=== PATIENT | female | born 1975 | race Caucasian/White ===

== ENCOUNTER 2018-12-16 23:54 | Inpatient (IN) ==
[2018-12-17] MEDS ORDERED: NARCAN IV ONE (00:53)
[2018-12-17 01:12] LABS: BASO# 0.01 X1000 (0.0-0.2); BASO% 0.1 % (0.0-0.8); EOS# 0.05 X1000 (0.0-0.7); EOS% 0.5 % (0.0-10.0); HEMATOCRIT 43.3 % (37.0-47.0); HEMOGLOBIN 14.9 g/dL (12.0-16.0); IMM GRAN# 0.02 X1000 (0.0-0.04); IMM GRAN% 0.2 % (0.0-0.5); LYMPH# 2.08 X1000 (1.2-3.4); LYMPH% 21.2 % (20.5-51.1); MCHC 34.4 g/dL (33-37); MONO# 0.42 X1000 (0.11-0.59); MONO% 4.3 % (1.7-9.3); MPV 10.1 FL (7.4-10.4); NEUT# 7.22 X1000 (1.4-6.5); NEUT% 73.7 % (42.2-75.2); PLT 282 X1000 (130-400); RBC 4.51 XMIL (4.2-5.4); RDW 13.3 % (11.5-14.5)
[2018-12-17 01:40] LABS: ACETAMINOPHEN < 1.2 ug/mL (10-30); AGAP 14; ALB/GLOB RATIO 1.5; ALBUMIN 4.3 g/dL (3.5-5.0); ALKALINE PHOSPHATASE 135 U/L (32-104); BUN 9 mg/dL (8-22); CALCIUM 9.5 mg/dL (8.8-10.2); CHLORIDE 108 mmol/L (98-107); CK TOTAL 58 U/L (24-173); COSMO 291; CREATININE 0.8 mg/dL (0.5-0.9); ESTIMATED GFR > 60; GLUCOSE 92 mg/dL (70-104); GOT 10 U/L (10-30); GPT 7 U/L (10-36); POTASSIUM 2.9 mmol/L (3.5-5.1); SALICYLATES 15.56 mg/dL (3-10); SODIUM 147 mmol/L (136-145); TCO2 25 mmol/L (25-35); TOTAL BILIRUBIN 0.22 mg/dL (0.20-1.00); TOTAL PROTEIN 7.2 g/dL (6.3-8.3)
--- NOTE | 2018-12-17 01:44 | PROVIDER DOCUMENTATION ---
[id number] Abuse/Overdose - General Chief Complaint: Overdose Stated Complaint: OVERDOSE Time Seen by Provider: 12/17/18 00:05 Source: family, EMS Unable to obtain history due to:: altered Allergies/Adverse Reactions: Allergies Allergy/AdvReac Type Severity Reaction Status Date / Time Sulfa (Sulfonamide Allergy SWELLING Verified 10/24/17 02:46 Antibiotics) Home Medications: Home Medication List Medication Instructions Recorded Confirmed Last Taken Type Clonazepam 1 mg PO BID PRN 11/20/17 06/09/18 11/07/17 History Olanzapine 10 mg PO QHS 11/20/17 06/09/18 11/07/17 History - History of Present Illness-Drug/Alcohol Nature of Presenting Problem: Presents to the EC via EMS after being found down in her house. Daughter is at bedside who states that she came home and tried to get into the house but she couldnt get in. She called her brother who came in and was able to push the door open and they found her down unconscious under the table. They were not able to awake her up and they called EMS. She has a history of drug overdoses before but wanting to harm hersef. She also has a history of heroin abuse per EMR. Review of Systems - Adult - REVIEW OF SYSTEMS - ADULT ROS:: unobtainable per condition Constitutional: reports: see HPI Past History - Adult - PAST MEDICAL HISTORY-ADULT Review of Records: reports: Old Records Reviewed, Nursing Assessment Review Major Childhood Illnesses: reports: denies history Cardiovascular: reports: HTN, other ( ) Respiratory: reports: denies history Gastrointestinal: reports: Crohn's, other (diverticulitis) Obstetrical/Gynecological: reports: other (hysterectomy) Genitourinary: reports: kidney disease Musculoskeletal: reports: denies history Neurological: reports: Seizures/Epilepsy Psychiatric: reports: psychiatric problems, other (bipolar) Endocrine/Immune: reports: denies history, other Other Conditions: reports: MRSA - PRIOR SURGERIES/PROCEDURES Surgical/Procedure History: reports: hysterectomy, other (asd repair) - PRIOR HOSPITALIZATIONS Prior Hospitalizations: reports: none - IMMUNIZATION STATUS Childhood Immunizations: See Nurse Assessment Flu Vaccine: See Nurse Assessment - FAMILY HISTORY Family History: reviewed, not pertinent Physical Exam-General - PHYSICAL EXAM-ADULT Initial Vital Signs Reviewed: Yes - CONSTITUTIONAL General Appearance: no apparent distress, other (respond sonly to verbal stimuli) - EYES Eyes: PERRL/EOMI (constricted bu equal and reactive) - HEAD, EARS, NOSE, MOUTH & THROAT HENMT: normocephalic/atraumatic - NECK Neck: normal inspection - RESPIRATORY Respiratory: chest non-tender, normal breath sounds - CARDIOVASCULAR Cardiovascular: normal peripheral pulses, regular rate, rhythm, no murmur - GASTROINTESTINAL (ABDOMEN) Abdominal Exam: normal bowel sounds, soft - MUSCULOSKELETAL Back Exam: normal inspection, no CVA tenderness Extremity: normal inspection, no pedal edema - SKIN Integumentary: normal color, warm/dry - NEUROLOGIC Neurologic: other (limited neuro eval due to patient mental status) - PSYCHIATRIC Psych/Mental Status: disoriented x 3 Progress - PLAN OF CARE/RESULTS Progress/Plan/Lab Results: Vital Signs - 8 hr 12/17/18 00:01 12/17/18 00:05 12/17/18 00:07 Temperature 97.5 F L Pulse Rate 79 92 H Respiratory Rate 14 20 Blood Pressure 139/107 140/101 140/101 O2 Sat by Pulse Oximetry 98 100 97 12/17/18 00:18 12/17/18 00:32 12/17/18 00:47 Temperature Pulse Rate 81 79 86 Respiratory Rate 18 18 17 Blood Pressure 129/88 131/92 116/91 O2 Sat by Pulse Oximetry 98 95 96 12/17/18 01:47 12/17/18 02:02 12/17/18 02:30 Temperature Pulse Rate 80 87 78 Respiratory Rate 18 18 17 Blood Pressure 148/101 117/83 O2 Sat by Pulse Oximetry 97 93 L 99 12/17/18 02:32 12/17/18 02:40 12/17/18 02:50 Temperature Pulse Rate 82 87 93 H Respiratory Rate 22 22 19 Blood Pressure 156/116 O2 Sat by Pulse Oximetry 98 97 12/17/18 03:00 12/17/18 03:04 12/17/18 03:10 Temperature Pulse Rate 89 90 79 Respiratory Rate 19 15 16 Blood Pressure O2 Sat by Pulse Oximetry 99 100 98 12/17/18 03:17 12/17/18 03:20 12/17/18 03:30 Temperature Pulse Rate 93 H 95 H 81 Respiratory Rate 18 19 18 Blood Pressure 137/94 O2 Sat by Pulse Oximetry 98 99 97 12/17/18 03:32 12/17/18 03:40 12/17/18 03:47 Temperature Pulse Rate 82 78 83 Respiratory Rate 19 17 17 Blood Pressure 130/92 101/86 O2 Sat by Pulse Oximetry 99 98 97 12/17/18 03:50 Temperature Pulse Rate 78 Respiratory Rate 17 Blood Pressure O2 Sat by Pulse Oximetry 94 L Laboratory Results - last 24 hr 12/17/18 12/17/18 12/17/18 00:24 00:24 00:24 WBC 9.80 RBC 4.51 Hgb 14.9 Hct 43.3 MCV 96.0 MCH 33.0 H MCHC 34.4 RDW Std Deviation 13.3 Plt Count 282 MPV 10.1 Immature Gran % (Auto) 0.2 Neut % (Auto) 73.7 Lymph % (Auto) 21.2 Miner % (Auto) 4.3 Eos % (Auto) 0.5 Baso % (Auto) 0.1 Immature Gran # (Auto) 0.02 Neut # (Auto) 7.22 H Lymph # (Auto) 2.08 Miner # (Auto) 0.42 Eos # (Auto) 0.05 Baso # (Auto) 0.01 PT INR PTT (Actin FS) Specimen Type Sample Site pH pCO2 pO2 HCO3 Base Excess Oxyhemoglobin ABG O2 Sat (Calculated) ABG O2 Saturation ABG Carboxyhemoglobin ABG Methemoglobin Miguel Test A-a O2 Difference Total Hemoglobin Lactate Blood Gas Modality FiO2 % Sodium 147 H Potassium 2.9 L Chloride 108 H Carbon Dioxide 25 Anion Gap 14 BUN 9 Creatinine 0.8 Estimated GFR/1.73 m2 > 60 BUN/Creatinine Ratio 11 Glucose 92 POC Glucose Calculated Osmolality 291 Calcium 9.5 Phosphorus Magnesium Total Bilirubin 0.22 AST 10 ALT 7 L Alkaline Phosphatase 135 H Creatine Kinase 58 Troponin T Total Protein 7.2 Albumin 4.3 Globulin 2.9 Albumin/Globulin Ratio 1.5 Urine Source Urine Color Urine Turbidity Urine pH Ur Specific [place] Urine Protein Ur Glucose (Stick) Ur Ketones (Stick) Urine Blood Urine Nitrite Urine Bilirubin Urobilinogen Dipstick Urine Leukocytes Urine WBC (Auto) Urine RBC (Auto) U Epithel Cells (Auto) Urine Bacteria (Auto) Salicylates 15.56 H Urine Opiates Screen Ur Oxycodone Screen Ur Methadone, Qual Acetaminophen < 1.2 L Ur Barbiturates Screen Ur Phencyclidine Scrn Ur Amphetamines Screen U Benzodiazepines Scrn Urine Cocaine Screen U Cannabinoids Screen Plasma/Serum Ethyl Alc 0712/17/18 12/17/18 00:24 00:24 00:24 WBC RBC Hgb Hct MCV MCH MCHC RDW Std Deviation Plt Count MPV Immature Gran % (Auto) Neut % (Auto) Lymph % (Auto) Miner % (Auto) Eos % (Auto) Baso % (Auto) Immature Gran # (Auto) Neut # (Auto) Lymph # (Auto) Miner # (Auto) Eos # (Auto) Baso # (Auto) PT 16.2 H INR 1.20 PTT (Actin FS) 32.9 Specimen Type Sample Site pH pCO2 pO2 HCO3 Base Excess Oxyhemoglobin ABG O2 Sat (Calculated) ABG O2 Saturation ABG Carboxyhemoglobin ABG Methemoglobin Miguel Test A-a O2 Difference Total Hemoglobin Lactate Blood Gas Modality FiO2 % Sodium Potassium Chloride Carbon Dioxide Anion Gap BUN Creatinine Estimated GFR/1.73 m2 BUN/Creatinine Ratio Glucose POC Glucose Calculated Osmolality Calcium Phosphorus 3.5 Magnesium 2.1 Total Bilirubin AST ALT Alkaline Phosphatase Creatine Kinase Troponin T < 0.010 Total Protein Albumin Globulin Albumin/Globulin Ratio Urine Source Urine Color Urine Turbidity Urine pH Ur Specific [place] Urine Protein Ur Glucose (Stick) Ur Ketones (Stick) Urine Blood Urine Nitrite Urine Bilirubin Urobilinogen Dipstick Urine Leukocytes Urine WBC (Auto) Urine RBC (Auto) U Epithel Cells (Auto) Urine Bacteria (Auto) Salicylates Urine Opiates Screen Ur Oxycodone Screen Ur Methadone, Qual Acetaminophen Ur Barbiturates Screen Ur Phencyclidine Scrn Ur Amphetamines Screen U Benzodiazepines Scrn Urine Cocaine Screen U Cannabinoids Screen Plasma/Serum Ethyl Alc 12/17/18 12/17/18 12/17/18 01:44 02:35 03:00 WBC RBC Hgb Hct MCV MCH MCHC RDW Std Deviation Plt Count MPV Immature Gran % (Auto) Neut % (Auto) Lymph % (Auto) Miner % (Auto) Eos % (Auto) Baso % (Auto) Immature Gran # (Auto) Neut # (Auto) Lymph # (Auto) Miner # (Auto) Eos # (Auto) Baso # (Auto) PT INR PTT (Actin FS) Specimen Type ARTERIAL Sample Site R RADIAL pH 7.46 H pCO2 38 pO2 75 HCO3 27.2 H Base Excess 3.1 H Oxyhemoglobin 93.8 L ABG O2 Sat (Calculated) 18.7 ABG O2 Saturation 96.5 ABG Carboxyhemoglobin 2.00 ABG Methemoglobin 0.7 Miguel Test YES A-a O2 Difference 27.0 Total Hemoglobin 14.2 Lactate 0.90 Blood Gas Modality ROOM AIR FiO2 % 21.0 Sodium Potassium Chloride Carbon Dioxide Anion Gap BUN Creatinine Estimated GFR/1.73 m2 BUN/Creatinine Ratio Glucose POC Glucose 106 H D Calculated Osmolality Calcium Phosphorus Magnesium Total Bilirubin AST ALT Alkaline Phosphatase Creatine Kinase Troponin T Total Protein Albumin Globulin Albumin/Globulin Ratio Urine Source CATH Urine Color YELLOW Urine Turbidity HAZY Urine pH 5.5 Ur Specific [place] 1.013 Urine Protein TRACE A Ur Glucose (Stick) NEGATIVE Ur Ketones (Stick) TRACE A Urine Blood MODERATE A Urine Nitrite POSITIVE A Urine Bilirubin NEGATIVE Urobilinogen Dipstick NORMAL Urine Leukocytes NEGATIVE Urine WBC (Auto) <10 Urine RBC (Auto) <10 U Epithel Cells (Auto) <10 Urine Bacteria (Auto) 4+ Salicylates Urine Opiates Screen Ur Oxycodone Screen Ur Methadone, Qual Acetaminophen Ur Barbiturates Screen Ur Phencyclidine Scrn Ur Amphetamines Screen U Benzodiazepines Scrn Urine Cocaine Screen U Cannabinoids Screen Plasma/Serum Ethyl Alc 12/17/18 03:00 WBC RBC Hgb Hct MCV MCH MCHC RDW Std Deviation Plt Count MPV Immature Gran % (Auto) Neut % (Auto) Lymph % (Auto) Miner % (Auto) Eos % (Auto) Baso % (Auto) Immature Gran # (Auto) Neut # (Auto) Lymph # (Auto) Miner # (Auto) Eos # (Auto) Baso # (Auto) PT INR PTT (Actin FS) Specimen Type Sample Site pH pCO2 pO2 HCO3 Base Excess Oxyhemoglobin ABG O2 Sat (Calculated) ABG O2 Saturation ABG Carboxyhemoglobin ABG Methemoglobin Miguel Test A-a O2 Difference Total Hemoglobin Lactate Blood Gas Modality FiO2 % Sodium Potassium Chloride Carbon Dioxide Anion Gap BUN Creatinine Estimated GFR/1.73 m2 BUN/Creatinine Ratio Glucose POC Glucose Calculated Osmolality Calcium Phosphorus Magnesium Total Bilirubin AST ALT Alkaline Phosphatase Creatine Kinase Troponin T Total Protein Albumin Globulin Albumin/Globulin Ratio Urine Source Urine Color Urine Turbidity Urine pH Ur Specific [place] Urine Protein Ur Glucose (Stick) Ur Ketones (Stick) Urine Blood Urine Nitrite Urine Bilirubin Urobilinogen Dipstick Urine Leukocytes Urine WBC (Auto) Urine RBC (Auto) U Epithel Cells (Auto) Urine Bacteria (Auto) Salicylates Urine Opiates Screen NONE DETECTED Ur Oxycodone Screen NONE DETECTED Ur Methadone, Qual NONE DETECTED Acetaminophen Ur Barbiturates Screen NONE DETECTED Ur Phencyclidine Scrn NONE DETECTED Ur Amphetamines Screen PRESUMPTIVE POSITIVE A U Benzodiazepines Scrn PRESUMPTIVE POSITIVE A Urine Cocaine Screen NONE DETECTED U Cannabinoids Screen PRESUMPTIVE POSITIVE A Plasma/Serum Ethyl Alc Orders Category Date Time Status [facility] Routine AdmDCTranf 12/17/18 05:22 Active Activity - Up with Assistance ORDERED Care 12/17/18 05:22 Active FSBS/Accucheck Result AC + HS Care 12/17/18 05:22 Active FSBS/Accucheck Result NOW Care 12/17/18 00:51 Completed Intake and Output-Strict ORDERED Care 12/17/18 05:22 Active Misc. NRSG Communication Order DIRECTED Care 12/17/18 05:22 Active SCD/MISTI Application [Apply Mechanical Device] [QM] Care 12/17/18 05:22 Acti ve ORDERED Vital Signs Order Q 8-HR ASSESS Care 12/17/18 05:22 Active Z-Document. for Tele Applied ORDERED Care 12/17/18 05:22 Active Social Service Consult Routine Cons 12/17/18 05:22 Active NPO Diet 12/17/18 05:22 Active CHEST-PORTABLE [RAD] Stat Exams 12/17/18 00:[address] HEAD/C-SPINE W/O CONTRAST [CT] Stat Exams 12/17/18 00:51 Taken ABG [RESP] Routine Lab 12/17/18 02:35 Completed ACETAMINOPHEN [TDM] Stat Lab 12/17/18 00:24 Completed ALCOHOL BLOOD Stat Lab 12/17/18 00:24 Completed BASIC METABOLIC PANEL [CHEM] Stat Lab 12/17/18 11:00 Ordered CBC WITH DIFF [HEME] Routine Lab 12/18/18 06:00 Ordered CBC WITH ELECTRONIC DIFF [HEME] Stat Lab 12/17/18 00:24 Completed CK TOTAL [CHEM] Stat Lab 12/17/18 00:24 Completed COMPREHENSIVE METABOLIC PANEL [CHEM] Routine Lab 12/18/18 06:00 Ordered COMPREHENSIVE METABOLIC PANEL [CHEM] Stat Lab 12/17/18 00:24 Completed MAGNESIUM [CHEM] Stat Lab 12/17/18 00:24 Completed PHOSPHORUS [CHEM] Stat Lab 12/17/18 06:17 Received PROTIME WITH INR [COAG] Stat Lab 12/17/18 00:24 Completed PTT [COAG] Stat Lab 12/17/18 00:24 Completed SALICYLATES [TDM] Routine Lab 12/17/18 11:00 Ordered SALICYLATES [TDM] Stat Lab 12/17/18 00:24 Completed TROPONIN T Stat Lab 12/17/18 00:24 Completed TSH Routine Lab 12/18/18 06:00 Ordered URINALYSIS W/POSS RFLX CULT [URINALYSIS] Stat Lab 12/17/18 03:00 Completed URINE CULTURE [RM] Routine Lab 12/17/18 03:33 Received URINE DRUG SCREEN Stat Lab 12/17/18 03:00 Completed phos [PHOSPHORUS] [CHEM] Stat Lab 12/17/18 00:24 Completed Acetaminophen [Tylenol] Med 12/17/18 05:22 Active 650 mg PO Q6H PRN PRN CefTRIAXONE [Rocephin] 1 gm Med 12/17/18 05:22 Active 0.9% Sodium Chloride Inj [Ns] 50 ml IV Q24H Naloxone [Narcan] Med 12/17/18 00:53 Discontinued 2 mg IV NOW ONE Ns + KCl 40 Meq 1,000 ml Med 12/17/18 05:22 Active IV 125 mls/hr Ondansetron [Zofran] Med 12/17/18 05:22 Active 4 mg IV Q4H PRN PRN Potassium Phosphate 40 meq Med 12/17/18 02:27 Discontinued 0.9% Sodium Chloride Inj [Ns] 250 ml IV NOW Sodium Bicarbonate 8.4% Med 12/17/18 03:49 Discontinued 50 meq IV PUSH NOW ONE Telemetry [OM.EQ] Routine Oth 12/17/18 05:22 Active Transfer/Admit Order [TRANSFER] Routine Transfer 12/17/18 03:38 Completed Result Diagrams: 12/17/18 00:24 12/17/18 00:24 - CT/MRI 1 CT Study: Cervical Spine (NO acute intracranial disease, motion artifact c ompromises cervical spine evaluation near C7. At this level 20% compression fracture is suspected. This fracture if of uncertain acuity but is more likely chronic. 3mm retrolitisthesis C5 on C6 suspected), Head - CONSULTS/PCP/HOSPITALIST Notification #1 *Consult/PCP/Hospitalist*: Transfer center Time Discussed: 02:15 Reason/Comments: Neurosurgery consult #2 Consult: Dr Dubon, Neurosurgery at Time Discussed: 03:24 (Has reviewed imaging, is chronic, no followup needed) #3 Consult: Hospitalist Time Discussed: :25 Consult Disposition: Admit Departure - Departure Date of Disposition Decision: 12/17/18 Time of Disposition Decision: 03:21 DIAGNOSIS: Hypokalemia Overdose Qualifiers: Encounter type: subsequent encounter Injury intent: undetermined intent Qu alified Code(s): T50.904D - Poisoning by unspecified drugs, medicaments and biological substances, undetermined, subsequent encounter Salicylate overdose Qualifiers: Encounter type: initial encounter Injury intent: undetermined intent Qualified Code(s): T39.094A - Poisoning by salicylates, undetermined, initial encounter Altered mental status Qualifiers: Altered mental status type: unspecified Qualified Code(s): R41.82 - Altered mental status, unspecified Disposition: ADMITTED INPATIENT 09 Certified Medical Emergency: Emergent Condition: Critical - Critical Care Note This patient required my direct & personal management of CC.: Yes Total Time (mins): 75 Critical Care Statement: This patient required my direct personal management to treat or rule out processes, the absence of which, could potentiallly result in sudden, clinically significant life or limb threatening deterioration. Attestation - Physician/ NARCISA Attestation Patient care was provided by Advanced Practice Provider:: No The physician spent face to face time with patient:: Yes Advanced Practice Provider documentation review:: Supervising physician onsite and consulted in the evaluation and care of this patient. The physician did have a face to face encounter with the patient.
[2018-12-17] MEDS ORDERED: POTASSIUM PHOSPHATE 40 MEQ in NS 250 ML IV ONE (02:27)
[2018-12-17 02:44] LABS: BE 3.1 mmoll (-3.0-3.0); BLOOD TYPE ARTERIAL; HCO3-(ACT) 27.2 mmoll (20.0-26.0); METHB 0.7 % (0.0-1.5); O2(CT) 18.7 mL/dL (15.0-23.0); O2HB 93.8 % (95.0-99.0); PCO2(98.6) 38 mmHg (35-45); PO2(98.6) 75 mmHg (60-100); SAMPLE BLOOD; SAO2 96.5 % (95.0-100.0); THB 14.2 g/dL (11.5-17.4); pH(98.6) 7.46 (7.35-7.45)
[2018-12-17 02:45] LABS: ALLEN TEST YES; MODALITY ROOM AIR
[2018-12-17 02:54] LABS: INR 1.2; PROTIME 16.2 Seconds (11.0-16.0); PTT 32.9 Seconds (22.3-41.8)
[2018-12-17 03:11] LABS: MAGNESIUM 2.1 mg/dL (1.5-2.7); PHOSPHORUS 3.5 mg/dL (2.7-4.5)
[2018-12-17 03:17] LABS: URINE SOURCE CATH
[2018-12-17 03:19] LABS: BILIRUBIN URINE NEGATIVE (NEGATIVE); BLOOD URINE MODERATE (NEGATIVE); COLOR YELLOW; GLUCOSE URINE NEGATIVE (NEGATIVE); KETONE URINE TRACE mg/dL (NEGATIVE); LEUKOCYTES URINE NEGATIVE (NEGATIVE); NITRITE URINE POSITIVE (NEGATIVE); PH URINE 5.5; PROTEIN URINE TRACE mg/dL (NEGATIVE); SP GRAVITY URINE 1.013; TURBIDITY URINE HAZY (CLEAR); UROBILINOGEN URINE NORMAL (NORMAL)
[2018-12-17 03:20] LABS: UR EPITHELIAL CELLS <10 /HPF (<10); URINE BACTERIA 4+ /HPF; URINE RBC <10 /HPF (<10); URINE WBC <10 /HPF (<10)
[2018-12-17] MEDS ORDERED: SODIUM BICARBONATE 8.4% IV PUSH ONE (03:49)
[2018-12-17 03:59] LABS: UR AMPHETAMINES QUAL PRESUMPTIVE POSITIVE (NONE DETECT); UR BARBITUATES QUAL NONE DETECTED (NONE DETECT); UR BENZODIAZEPIN QUAL PRESUMPTIVE POSITIVE (NONE DETECT); UR CANNABINOIDS QUAL PRESUMPTIVE POSITIVE (NONE DETECT); UR COCAINE QUAL NONE DETECTED (NONE DETECT); UR METHADONE QUAL NONE DETECTED (NONE DETECT); UR OPIATES QUAL NONE DETECTED (NONE DETECT); UR OXYCODONE QUAL NONE DETECTED (NONE DETECT); UR PCP QUAL NONE DETECTED (NONE DETECT)
--- NOTE | 2018-12-17 05:25 | Diag Imaging Result Doc PS360 ---
EXAM: CHEST-PORTABLE HISTORY: AMS TECHNIQUE: Chest single view COMPARISON: 05/24/2015 FINDINGS: The lungs are well expanded. The heart is not enlarged. There are sternal wires. The vessels are not distended. No consolidation. Mild increased interstitial markings similar to the prior exam believed to be fibrosis. No effusion identified. IMPRESSION: Stable chest. Electronically signed by Ozzie England 12/17/2018 5:23 AM
[2018-12-17] MEDS: NS + KCL 40 MEQ 1,000 ML IV SCH ×2 (06:52→13:20)
[2018-12-17] MEDS: ROCEPHIN 1 GM in NS 50 ML IV SCH (06:52)
--- NOTE | 2018-12-17 07:07 | HISTORY AND PHYSICAL ---
PRIMARY CARE PHYSICIAN: None. REASON FOR ADMISSION: Found unresponsive last night by daughter. HISTORY OF PRESENT ILLNESS: Ms. Dayo Lincoln is a 43-year-old lady with a longstanding history of clinical depression and prior suicide attempts. Found by her daughter at 11, four hours ago, at home. The patient was very difficult to arouse. The daughter denies any unusual movement, abnormalities of her extremities. No fecal or urinary incontinence. Call EMS and brought to the ER. Over the course of the last 4 hours, the patient has started to arouse. Moves all extremities and actually became a little more agitated. The patient was given Narcan 2 mg in the ER and did not respond. Daughter reports that mother has been voicing suicidal thoughts but she is not sure if she has had any audio or visual hallucinations. Currently, patient is semiconscious, arousable to pain but will not answer any questions. Thus, review of systems is limited. ALLERGIES: Sulfa. HOME MEDICATIONS: Unknown. SURGICAL HISTORY: Other than congenital heart disease for a hole in the heart, per the daughter, nothing else. FAMILY HISTORY: Notable for strokes and heart disease in first-degree relatives. SOCIAL HISTORY: Daughter is not sure what drugs she abuses but has a past medical history of heroin abuse. Smokes 2 packs of cigarettes a day. No active illicit drug use. Lives with her mother. LABORATORY DATA: White count is 95, hemoglobin and hematocrit 14 and 43, platelets 282,000 with normal differential. Sodium is 147, potassium 2.9, anion gap is 14, with normal bicarb. Alkaline phosphatase 135. Troponin is negative. PT is normal , INR 1.2. Salicylate 15.56. Acetaminophen and alcohol levels are normal. Urinalysis positive blood, positive nitrites, 4+ bacteria. PH 7.46, PO2 75, pCO2 38. Lactate is normal. Saturation is normal on room air. Chest film is a poor inspiratory effort. No gross evidence of pulmonary edema, although there was poor penetration of this film as it was a rotated film. Head CT was normal. C-spine CT was suggestive of 20% compression deformity at C7, although this may be artifact. PHYSICAL EXAMINATION: VITAL SIGNS: Blood pressure is 117/83, heart rate is 87, respirations 18, temperature is 97.5, she is 93% on room air. GENERAL: Middle-aged, woman who has a neck brace. She drifts in and out of somnolence but never opens her eyes. HEENT: Head is normocephalic. Eyes: Pupils are normal size, reactive to light. No nystagmus noted. Nonicteric. Not pale. ENT, oropharyngeal exam was limited due to neck brace in place. No bruit or central cyanosis. I could not do a proper neck exam due to brace in place. CHEST: Clear to auscultation. Good air entry in both lung cuevas. CARDIAC: First and second heart sounds heard. No gallops, murmurs, rubs. Rhythm is regular. ABDOMEN: Full, soft. With mild suprapubic tenderness. No rebound or guarding. RECTAL: Exam deferred. EXTREMITIES: Patient has good distal pulse volumes. Rhythm is regular, symmetrical. No edema, clubbing, or cyanosis. NEUROLOGICAL SYSTEM: The patient is moving all extremities and the patient is thrashing around in bed. No gross focal motor deficits. SKIN: Intact. No breakdown, lesions, or erythema. MUSCULOSKELETAL EXAMINATION: Grossly normal. ASSESSMENT: 1. Toxic encephalopathy probably secondary to polysubstance abuse. 2. Salicylate poisoning. 3. Urinary tract infection. 4. Hypokalemia. PLAN: We will correct hypokalemia, check magnesium levels and correct accordingly. EKG was not available for me to review at this point in time and this needs to be followed. We will give patient IV fluids. Correct potassium as stated above. Plan to give NaHCO3 IVP to alkalinize patient's urine to enhance salicylate excretion via the kidney by the mechanism of increased salicylate secretion and decreased reabsorption. Because of this, I will need to monitor patient's potassium levels as bicarbonate can cause further hypokalemia. The patient did have suprapubic tenderness and I will treat urinary tract infection for 3 days. The patient had suicidal ideations and when she is clinically stable, from a medical standpoint, can be transferred to psychiatric facility. She will be admitted to the ICU for close observation. Urine drug screen is pending and we are not fully sure the extent of what medication she is taking to put her in this state. DVT prophylaxis with SCDs. We will hold off on heparinoids due to the unknown amount of aspirin the patient has ingested. cc: MD VALENTE Gibbs
--- NOTE | 2018-12-17 08:09 | Diag Imaging Result Doc PS360 ---
EXAM: CT HEAD/C-SPINE W/O CONTRAST 12/17/2018 HISTORY: AMS TECHNIQUE: This exam was performed using automated exposure control, adjustment of mA or kV according to patient size, and/or use of iterative reconstruction technique. COMMENT: There is no evidence of mass effect, bleed, or abnormal extra-axial fluid collection. The calvarium is intact. The visualized paranasal sinuses are clear. Cervical spine: There is fairly severe degenerative disc disease at C5-6 with disc space narrowing and left-sided uncovertebral arthropathy slightly narrowing the foramen. There is considerable motion artifact at the level of C7. This level is not adequately evaluated and the study should be repeated. Otherwise, there is no evidence of acute fracture or subluxation and no prevertebral soft tissue swelling is present. The facets are aligned. IMPRESSION: No evidence of acute intracranial disease. Suboptimal evaluation of C7 due to motion artifact. Repeat of the cervical spine study is recommended. Electronically signed by Andrea Hayden 12/17/2018 8:06 AM
[2018-12-17 11:40] LABS: AGAP 11; BUN 9 mg/dL (8-22); CALCIUM 8.8 mg/dL (8.8-10.2); CHLORIDE 110 mmol/L (98-107); COSMO 291; CREATININE 0.7 mg/dL (0.5-0.9); ESTIMATED GFR > 60; GLUCOSE 95 mg/dL (70-104); POTASSIUM 3.1 mmol/L (3.5-5.1); SODIUM 147 mmol/L (136-145); TCO2 26 mmol/L (25-35)
[2018-12-17] MEDS ORDERED: POTASSIUM CHLORIDE 60 MEQ in NS 500 ML IV ONE (14:35)
[2018-12-17] MEDS: NS 1,000 ML IV SCH (14:51)
[2018-12-17] MEDS ORDERED: STERILE WATER INJ. INJ ONE (21:52)
[2018-12-17] MEDS ORDERED: GEODON IM ONE (21:52)
[2018-12-18] MEDS: ZOFRAN IV PRN ×2 (00:58→08:58)
[2018-12-18] MEDS: NS 1,000 ML IV SCH ×2 (01:08→10:45)
[2018-12-18] MEDS: TYLENOL PO PRN ×2 (02:58→17:01)
[2018-12-18 04:56] LABS: BASO# 0.02 X1000 (0.0-0.2); BASO% 0.3 % (0.0-0.8); EOS# 0.02 X1000 (0.0-0.7); EOS% 0.3 % (0.0-10.0); HEMATOCRIT 40.9 % (37.0-47.0); HEMOGLOBIN 14.1 g/dL (12.0-16.0); LYMPH# 1.47 X1000 (1.2-3.4); LYMPH% 23.1 % (20.5-51.1); MCH 34.1 PG (27-31); MCHC 34.5 g/dL (33-37); MONO# 0.23 X1000 (0.11-0.59); MONO% 3.6 % (1.7-9.3); MPV 10.2 FL (7.4-10.4); NEUT# 4.62 X1000 (1.4-6.5); NEUT% 72.7 % (42.2-75.2); PLT 216 X1000 (130-400); RBC 4.13 XMIL (4.2-5.4); RDW 13.4 % (11.5-14.5); WBC 6.36 X1000 (4.8-10.8)
[2018-12-18] MEDS: ROCEPHIN 1 GM in NS 50 ML IV SCH (05:03)
[2018-12-18 05:18] LABS: AGAP 12; ALB/GLOB RATIO 1.1; ALBUMIN 3.7 g/dL (3.5-5.0); ALKALINE PHOSPHATASE 115 U/L (32-104); BUN 6 mg/dL (8-22); CHLORIDE 113 mmol/L (98-107); COSMO 287; CREATININE 0.7 mg/dL (0.5-0.9); ESTIMATED GFR > 60; GLUCOSE 113 mg/dL (70-104); GOT 13 U/L (10-30); GPT 6 U/L (10-36); POTASSIUM 3.3 mmol/L (3.5-5.1); SODIUM 145 mmol/L (136-145); TCO2 20 mmol/L (25-35); TOTAL BILIRUBIN 0.33 mg/dL (0.20-1.00)
[2018-12-18] MEDS ORDERED: KLOR-CON PO ONE (08:23)
[2018-12-18] MEDS ORDERED: PHENERGAN IV PRN (11:51)
[2018-12-18] MEDS ORDERED: SODIUM CHLORIDE 0.9% INJ PRN (11:51)
[2018-12-18] MEDS ORDERED: POTASSIUM CHLORIDE 60 MEQ in NS 500 ML IV ONE (11:52)
[2018-12-18] MEDS: LITHIUM CARBONATE PO SCH ×2 (12:55→21:46)
[2018-12-18] MEDS: PROZAC PO SCH (12:56)
[2018-12-18] MEDS: ZYPREXA PO SCH ×2 (12:56→21:45)
[2018-12-18] MEDS: VYVANSE PO SCH (12:56)
--- NOTE | 2018-12-18 13:29 | Diag Imaging Result Doc PS360 ---
EXAM: ABDOMEN FLAT/UPRIGHT HISTORY: abdominal pain TECHNIQUE: Flat and upright, two views COMPARISON: 04/09/2014 FINDINGS: No bowel obstruction although there is stool throughout the colon. No organomegaly. No foreign body. There are several pelvic phleboliths. Slight curvature to the spine. IMPRESSION: Mild constipation. Electronically signed by Ozzie England 12/18/2018 1:27 PM
[2018-12-18] MEDS ORDERED: LOVENOX SUBQ SCH (20:00)
[2018-12-18] MEDS: MIRALAX PO SCH (21:46)
[2018-12-18] MEDS: COREG PO SCH (21:46)
[2018-12-18] MEDS: COLACE PO SCH (21:46)
--- NOTE | 2018-12-19 04:11 | PROGRESS NOTE ---
DATE: 12/18/2018 SUBJECTIVE: The patient is resting comfortably. She admits that she has been having suicidal ideation and depression. OBJECTIVE: Vital Signs: Temperature 98.6 degrees, blood pressure 161/100, heart rate 60, respirations 18, O2 saturation 97% on room air. General: This is a middle-aged female sitting in bed in no acute distress. Heart: S1, S2 normal. Regular rate and rhythm. Lungs: Equal air entry bilaterally with no crackles, no rales. Abdomen: Positive bowel sounds. Soft, nontender, nondistended. Extremities: No edema, no cyanosis. Neurologic: The patient is alert and oriented x3. LABS: Sodium 145, potassium 3.3, chloride 113, CO2 20, BUN 6, creatinine 0.7, glucose 113, AST 13, ALT 6, alkaline phosphatase 115. ASSESSMENT AND PLAN: 1. Drug overdose with polysubstance abuse. The patient reports that she has been having suicidal ideation at home and admits to severe depression. She is followed by a psychiatrist in [place]. Will consult with [facility]. 2. Salicylate poisoning, improved. 3. Urinary tract infection. The urine culture is growing gram-negative rods. Continue on Rocephin. 4. Bipolar disorder. Continue on lithium. The patient's lithium level is subtherapeutic. 5. Hypokalemia. Will replace the patient's potassium. 6. Severe depression. Will continue on Prozac. 7. Nausea with vomiting. The patient's abdominal x-ray shows constipation. We will start scheduled laxative therapy and consult with GI. The patient is currently on a full liquid diet. 8. Deep vein thrombosis prophylaxis. Will start the patient on Lovenox. 9. Disposition. The patient will remain on one-to-one observation due to suicidal ideation. cc: Amy Colbert MD MTDD
[2018-12-19] MEDS: ROCEPHIN 1 GM in NS 50 ML IV SCH (05:06)
[2018-12-19 07:34] LABS: HEMATOCRIT 37.7 % (37.0-47.0); HEMOGLOBIN 12.7 g/dL (12.0-16.0); MCH 33.9 PG (27-31); MCHC 33.7 g/dL (33-37); MCV 100.5 FL (81-99); MPV 10.3 FL (7.4-10.4); RBC 3.75 XMIL (4.2-5.4); WBC 9.23 X1000 (4.8-10.8)
[2018-12-19 07:37] LABS: AGAP 10; ALBUMIN 3.6 g/dL (3.5-5.0); BUN 5 mg/dL (8-22); CALCIUM 8.8 mg/dL (8.8-10.2); CHLORIDE 110 mmol/L (98-107); COSMO 282; CREATININE 0.6 mg/dL (0.5-0.9); ESTIMATED GFR > 60; GLUCOSE 124 mg/dL (70-104); PHOSPHORUS 2.4 mg/dL (2.7-4.5); POTASSIUM 3.3 mmol/L (3.5-5.1); SODIUM 142 mmol/L (136-145); TCO2 22 mmol/L (25-35)
[2018-12-19] MEDS: NS 1,000 ML IV SCH ×2 (08:15→09:04)
[2018-12-19] MEDS: MIRALAX PO SCH (08:46)
[2018-12-19] MEDS: COLACE PO SCH (08:47)
[2018-12-19] MEDS: VYVANSE PO SCH (08:59)
[2018-12-19] MEDS: ZYPREXA PO SCH (09:00)
[2018-12-19] MEDS: COREG PO SCH (09:00)
[2018-12-19] MEDS: PROZAC PO SCH (09:01)
[2018-12-19] MEDS: LITHIUM CARBONATE PO SCH (09:01)
[2018-12-19] MEDS ORDERED: MAGNESIUM SULFATE 2 GM/S.W.I. 2 GM/50 ML IVPB IV ONE (10:43)
[2018-12-19] MEDS ORDERED: POTASSIUM PHOSPHATE 40 MMOL in NS 250 ML IV ONE (10:43)
[2018-12-19 15:17] VITALS: BP 108/67
== END 2018-12-19 18:21 | disposition left against medical advice (07) | DRG 917 ==
LOC: SUPCPDRO → ED 23:54 → SUATTDRO 12-17 03:58 → ICU 12-17 03:58 → 4N 12-18 15:30
PROVIDERS: ATTEND Internal Medicine
CPT/HCPCS: 70450; 71010; 71045; 72125; 74019; 74020; 80048; 80053; 80069; 80101; 80178; 80196; 80301; 80307; 80320; 80324; 80329; 80345; 80346; 80353; 80358; 80361; 80365; 81001; 82003; 82055; 82550; 82805; 82948; 83735; 83992; 84100; 84443; 84484; 85025; 85027; 85610; 85730; 87077; 87088; 87186; A9270; G0431; G0434; G0479; G0480; G6038; G6039; G6040; J0696; J1650; J2310; J2405; J2550; J3475; J3480; J3486; J7030; J7040; J7050; XXXXX